=== PATIENT | female | born 1995 | race Caucasian/White ===

== ENCOUNTER 2016-11-23 15:10 | Emergency (ER) | payer OTHER ==
[~2016-11-23] VITALS: Ht 167.6 cm; Wt 102.1 kg
== END 2016-11-23 15:34 | disposition home or self-care (01) ==
LOC: ED 15:10
DX: S01.511A Laceration without foreign body of lip, initial encounter (principal); Z23 Encounter for immunization; Z88.0 Allergy status to penicillin; X58.XXXA Exposure to other specified factors, initial encounter; Y93.89 Activity, other specified; Y92.828 Other wilderness area as the place of occurrence of the external cause; Y99.8 Other external cause status

== ENCOUNTER 2017-09-16 00:39 | Emergency (ER) | payer OTHER ==
[~2017-09-16] VITALS: Ht 172.7 cm; Wt 102.1 kg
== END 2017-09-16 01:17 | disposition home or self-care (01) ==
LOC: ED 00:39
DX: S61.300A Unspecified open wound of right index finger with damage to nail, initial encounter (principal); S69.81XA Other specified injuries of right wrist, hand and finger(s), initial encounter; Z88.0 Allergy status to penicillin; W22.8XXA Striking against or struck by other objects, initial encounter; Y93.89 Activity, other specified; Y92.89 Other specified places as the place of occurrence of the external cause; Y99.9 Unspecified external cause status

== ENCOUNTER 2018-02-13 11:32 | Emergency (ER) | payer OTHER ==
[~2018-02-13] VITALS: Ht 170.1 cm; Wt 99.8 kg
[2018-02-13] MEDS ORDERED: ESCITALOPRAM OX10 MG PO (11:40)
[2018-02-13] MEDS ORDERED: NAPROXEN500 MG PO (11:40)
[2018-02-13] MEDS ORDERED: SEPTDS PO (14:30)
[2018-02-13] MEDS ORDERED: IBUPROFEN600 MG PO (14:30)
[2018-02-13] MEDS ORDERED: TESSALON PERLE100 M1 PO (14:30)
[2018-02-13] MEDS ORDERED: DOXYCYCLINE100 M3 PO (15:18)
== END 2018-02-13 15:12 | disposition home or self-care (01) ==
LOC: ED 11:32
DX: J01.90 Acute sinusitis, unspecified (principal); Z88.0 Allergy status to penicillin; Z79.899 Other long term (current) drug therapy